=== PATIENT | male | born 1960 | race Caucasian/White ===

== ENCOUNTER 2023-01-30 16:04 | Inpatient (IN) | payer MEDICAID, SELFPAY ==
[2023-01-30] VITALS (8 sets, daily range): BP systolic 110–187; BP diastolic 53–120; PULSE 94–145; RESP 16–18; TEMP 36.5–37.3; O2SAT 94–98; BMI 26.6; BMI 23.8
--- NOTE | 2023-01-30 16:42 | EDS_ITS ---
HPI History of Present Illness Chief Complaint: Substance Abuse [facility] Medical History (Updated 01/30/23 @ 16:50 by Lizzette Flores) Alcohol abuse Esophagitis Stomach ulcer Allergy/AdvReac Type Severity Reaction Status Date / Time No Known Allergies Allergy Verified 01/30/23 16:06 Social History Smoking Status: Current every day smoker tobacco type: cigarettes EXAM Physical Exam Const Vital Signs: 01/30/23 16:06 01/30/23 16:46 01/30/23 18:29 Temperature 97.7 F L Temperature Source Temporal Pulse Rate 145 H 94 96 Respiratory Rate 16 16 16 Blood Pressure 187/120 H 128/96 H 163/108 H Blood Pressure Mean 142 106 126 Blood Pressure Source Blood Pressure Position Blood Pressure Location Pulse Ox 98 96 96 Oxygen Delivery Method Room Air Room Air Room Air 01/30/23 18:31 Temperature Temperature Source Pulse Rate 94 Respiratory Rate 16 Blood Pressure 128/111 H Blood Pressure Mean 116 Blood Pressure Source Monitor Blood Pressure Position Sitting Blood Pressure Location Left Arm Pulse Ox 96 Oxygen Delivery Method Room Air MDM MDM MDM Narrative Medical decision making narrative: HISTORY OF PRESENT ILLNESS: 62-year-old male here for detox of alcohol. He states his last drink was a few hours ago typically drinks half pint tequila and 4-5 Budweiser's a day. He further states his last drink was 2 hours prior to arrival. Notes history of alcohol withdrawal approximate 1 month ago. Denies history of seizures. Notes abdominal pain and nausea. REVIEW OF SYSTEMS: Pertinent positives: Nausea, abdominal pain Pertinent negatives: Focal weakness, chest pain PHYSICAL EXAM: Nursing triage notes reviewed, Vital signs reviewed Constitutional: please see mdm HENT: MMM Eyes: Pupils equal round and reactive to light, Extraocular muscles intact Neck: No stridor, no JVD, full neck ROM Lungs: Clear to auscultation, No wheezing or rales. No increased work of breathing, no conversational dyspnea, no accessory muscle use, no nasal flaring. No respiratory distress noted Heart: Regular rate and rhythm, No murmurs, No rubs and No gallops, 2+ distal pulses (radial, femoral, posterior tibial) in all extremities Abdomen: Soft, there is no tenderness, rigidity, rebound or guarding, no obvious peritoneal signs, no palpable pulsatile abdominal masses, no auscultated abdominal bruit : No CVAT Extremities: No edema Neuro: No focal neurological deficits, cranial nerves II through XII intact, 5/5 strength in all extremities. Intact sensation to light touch in all extremities, 2+ reflexes bilateral patella tendons. Normal gait. No ataxia. Skin: No rash or lesions noted MEDICAL DECISION MAKING: Chief Complaint: Alcohol withdrawal/alcohol detox External records reviewed: No recent ED visits or hospitalizations Factors affecting care: Alcohol abuse Social determinants of health: Alcohol abuse History obtained from others: none Consults: Internal medicine MDM Narrative: Initially tachycardic, hypertensive otherwise afebrile and nontoxic-appearing I considered the following differential diagnosis: Alcohol withdrawal, dehydration, ALL IMAGES (IF OBTAINED) HAVE BEEN PERSONALLY REVIEWED AND INTERPRETED BY MYSELF. CBC with no leukocytosis to suggest significant admission, with anemia, no thrombocytopenia BMP with hyponatremia, no significant anion gap, no MELO LFTs with elevated liver enzymes but no hyperbilirubinemia or signs of hepatobiliary structure Lipase is wnl indicating no pancreatic inflammation. Urine tox screen unremarkable (noted positive benzodiazepines likely from Ativan dose here) Serum alcohol negative consistent with early alcohol withdrawal The synthesis of the patient's history, physical exam labs are consistent with acute alcohol withdrawal. He was treated with phenobarbital and IV Ativan for initial CIWA of 8. He was given thiamine and fluids. Patient required mission for alcohol detox. Case was discussed with hospitalist. The patient and/or family, caregivers express understanding. The patient and/or family, caregivers agrees with the plan. Shared decision making: I will have a discussion with the patient and or visitors regarding risk/benefits of further testing or admission. They will be made aware of of the risk/benefits inherent in this decision they will be given the opportunity to voice understanding. Total critical care time today provided was at least 0 [] minutes. This excludes separately billable procedures. Critical care time (if documented) is secondary to the patient having high probability of clinically significant/life threatening deterioration in the patient's condition which required my urgent intervention. Impression: 1. Acute alcohol withdrawal 2. Anemia 3. Hyponatremia 4. Elevated liver enzymes 5. Alcohol use disorder Dispo: Admit Lab Data Labs: Laboratory Results - last 24 hr 01/30/23 01/30/23 17:02 18:06 WBC 7.9 RBC 4.18 L Hgb 11.3 L Hct 35.9 L MCV 85.9 MCH 27.0 MCHC 31.5 L RDW Std Deviation 58.6 H RDW Coeff of Warner 18.9 H Plt Count 471 H MPV 9.4 Immature Gran % (Auto) 1.300 H Neut % (Auto) 49.8 Lymph % (Auto) 32.5 [place] % (Auto) 13.3 H Eos % (Auto) 1.8 Baso % (Auto) 1.3 H Absolute Neuts (auto) 4.0 Absolute Lymphs (auto) 2.57 Nucleated RBC % 0 Differential Comment SCANNED Sodium 133 L Potassium 3.7 Chloride 104 Carbon Dioxide 22.0 Anion Gap 7 BUN 10 Creatinine 0.51 L Estim Creat Clear Calc 144.01 Est GFR (MDRD) Af Amer 213 Est GFR (MDRD) Non-Af 176 BUN/Creatinine Ratio 19.6 Glucose 72 L Calcium 9.4 Total Bilirubin 0.20 Direct Bilirubin 0.07 AST 79 H ALT 121 H Alkaline Phosphatase 109 Total Protein 7.4 Albumin 3.2 Globulin 4.2 Lipase 22 Urine Opiates Screen NEGATIVE Urine Methadone Screen NEGATIVE Ur Barbiturates Screen NEGATIVE Ur Phencyclidine Scrn NEGATIVE Ur Amphetamines Screen NEGATIVE MDMA (Ecstasy) Screen NEGATIVE U Benzodiazepines Scrn POSITIVE H Urine Cocaine Screen NEGATIVE U Cannabinoids Screen NEGATIVE Ur Drug Screen Comment Ethyl Alcohol 29.0 Discharge Plan Triage Chief Complaint: Substance Abuse ED Provider: Sreekanth Chang Dx/Rx/DC Orders Primary Care Provider: Care Physician,No Primary Referrals: [facility] Doctor,Out of [Non-Staff] -
[2023-01-30] MEDS: Phenobarbital 32.4 MG Tablet 97.2 MG PO ×2 (17:07→22:42)
[2023-01-30] MEDS: 0.9% Normal Saline (1000mL) 1,000 ML 999 ML IV (17:07)
[2023-01-30] MEDS: LORazepam 2 MG/ML Syringe IV (17:10)
[2023-01-30] MEDS: Ondansetron 4 MG/2 ML Vial IV (17:10)
[2023-01-30 17:24] LABS: Absolute Lymphocyte Count 2.57 X10^3/uL (0.83-4.51); Basophil% 1.3 % (0-1); Eosinophil# 0.14 X10^3/uL; Eosinophils% 1.8 % (0-5); Hematocrit 35.9 % (40-54); Hemoglobin 11.3 g/dL (13.0-16.5); Lymphocyte # 2.57 X10^3/ul (0.83-4.51); Lymphocyte % 32.5 % (19-41); Mean Corp Hgb Conc 31.5 g/dL (32-36); Mean Corpuscular Volume 85.9 fL (80-94); Mean Platelet Vol. 9.4 fl (6.2-12.0); Monocyte# 1.05 X10^3/uL; Monocyte% 13.3 % (0-10); NRBC Flagged by Analyzer 0 % (0-5); Neutrophil # 3.95 X10^3/uL (2.7-7.7); Neutrophil % 49.8 % (47-70); POSITIVE MORPHOLOGY YES; Platelet Count 471 K/mm3 (150-450); RBC Distribution Width CV 18.9 % (11.6-14.6); RBC Distribution Width SD 58.6 fl (35.1-43.9); Red Blood Count 4.18 M/mm3 (4.6-6.2); White Blood Count 7.9 K/mm3 (4.4-11.0)
[2023-01-30 17:28] LABS: Differential Indicated SCAN CRITERIA MET
[2023-01-30 18:13] LABS: AST(SGOT) 79 U/L (15-37); Alanine Aminotransfer ALT/SGPT 121 U/L (16-61); Albumin, Serum 3.2 g/dL (3.2-5.0); Alkaline Phosphatase 109 U/L (45-117); Anion Gap 7 (5-15); BUN 10 mg/dL (7-18); BUN/Creat Ratio 19.6 RATIO (10-20); Bilirubin, Direct 0.07 mg/dL (0.00-0.30); Calcium,Total 9.4 mg/dL (8.5-10.1); Chloride 104 mmol/L (98-107); Creatinine, Serum 0.51 mg/dL (0.70-1.30); EST Glomerular Filtration Rate 176 mL/min (>60); Est Glom Filt Rate - Afr Amer 213 mL/min (>60); Estimated Creatinine Clearance 144.01 ml/min; Globulin 4.2 g/dL (2.2-4.2); Glucose 72 mg/dL (74-106); Lipase 22 U/L (13-75); Potassium 3.7 mmol/L (3.5-5.1); Protein, Total 7.4 g/dL (6.4-8.2); Sodium Level 133 mmol/L (136-145)
[2023-01-30 18:25] LABS: Differential Comment SCANNED
[2023-01-30] MEDS: Thiamine Hydrochloride 100 MG in 0.9% Normal Saline (50mL Bag) 50 ML 200 MG IV (18:27)
[2023-01-30 18:29] LABS: Amphetamine Urine VISTA NEGATIVE (<1000 ng/mL); Barbiturate Urine VISTA NEGATIVE (< 200 ng/mL); Benzodiazepine Urine VISTA POSITIVE (< 200 ng/mL); Cocaine Urine VISTA NEGATIVE (< 300 ng/mL); Ecstacy Urine VISTA NEGATIVE (< 500 ng/mL); Methadone Urine VISTA NEGATIVE (< 300 ng/mL); PCP Urine VISTA NEGATIVE (< 25 ng/mL); THC Urine VISTA NEGATIVE (< 50 ng/mL); Vista UDS pH Range 6
[2023-01-30] MEDS: LORazepam 2 MG/ML Syringe 3 MG IV (19:31)
--- NOTE | 2023-01-30 19:38 | HP.PCM.HOS_ITS ---
HPI - General General Date of Admission: 01/30/23 Date of Service: 01/30/23 Chief Complaint: Desire for detoxification HPI Narrative CAYETANO LOYD, is a 62 M with a significant history of alcoholism; esophagitis; peptic ulcer disease; fatty liver; and tobacco abuse who presents emergency department who presents to the emergency department for help with alcohol detoxification. Patient reports drinking a pint of tequila each day. Also he drinks 4-5 tall cans of beer. He has been drinking heavily for the past 25 years. Last time he drank was about 2 hours prior to presentation. While at the emergency department patient was withdrawing so he was given phenobarbital, Ativan and ondansetron. Patient reports withdrawal symptoms of tremors. [facility] Medical History Alcohol abuse Esophagitis Stomach ulcer Allergy/AdvReac Type Severity Reaction Status Date / Time No Known Allergies Allergy Verified 01/30/23 16:06 Family History (Updated 01/30/23 @ 19:[address] Michelet Alejo MD) Other Dementia Diabetes no surgical history Social History Smoking Status: Current every day smoker tobacco type: cigarettes ROS ROS Narrative Pertinent positives and pertinent negatives as noted in HPI. All other systems were reviewed and are negative Vital Signs Vital Signs Vital Signs: 01/30/23 16:06 01/30/23 16:46 01/30/23 18:29 Temperature 97.7 F L Temperature Source Temporal Pulse Rate 145 H 94 96 Respiratory Rate 16 16 16 Blood Pressure 187/120 H 128/96 H 163/108 H Blood Pressure Mean 142 106 126 Blood Pressure Source Blood Pressure Position Blood Pressure Location Pulse Ox 98 96 96 Oxygen Delivery Method Room Air Room Air Room Air 01/30/23 18:31 Temperature Temperature Source Pulse Rate 94 Respiratory Rate 16 Blood Pressure 128/111 H Blood Pressure Mean 116 Blood Pressure Source Monitor Blood Pressure Position Sitting Blood Pressure Location Left Arm Pulse Ox 96 Oxygen Delivery Method Room Air Weight Weight: 77.111 kg Body Mass Index (BMI) 26.6 Physical Exam Narrative Physical exam: General: Well-nourished, well-developed. Head: Normocephalic, atraumatic, no tenderness Eyes: Vision is grossly intact. EOMI ENT, no trauma, moist mucous membranes, no rhinorrhea Neck: Nontender, No thyromegaly. CVS: Regular rate and rhythm. S1-S2 present. No murmur, gallop or rub. Respiratory : clear to auscultation bilaterally, chest wall nontender Abdomen: Soft, nontender, nondistended, normal bowel sounds, no masses : Deferred Back: Nontender, no CVA tenderness. Extremities: Nontender full range of motion, no trauma Skin: Normal color, no trauma, abrasions Neuro: Alert, oriented, cranial nerves II through XII grossly intact. Tremors. Psychiatry: Normal mood. Normal affect. Not depressed. Not anxious. Results Lab / Micro Data 01/30/23 17:02 01/30/23 17:02 Labs: Laboratory Results - last 24 hr 01/30/23 17:02: WBC 7.9, RBC 4.18 L, Hgb 11.3 L, Hct 35.9 L, MCV 85.9, MCH 27.0, MCHC 31.5 L, RDW Std Deviation 58.6 H, RDW Coeff of Warner 18.9 H, Plt Count 471 H, MPV 9.4, Immature Gran % (Auto) 1.300 H, Neut % (Auto) 49.8, Lymph % (Auto) 32.5, [place] % (Auto) 13.3 H, Eos % (Auto) 1.8, Baso % (Auto) 1.3 H, Absolute Neuts (auto) 4.0, Absolute Lymphs (auto) 2.57, Nucleated RBC % 0, Differential Comment SCANNED, Sodium 133 L, Potassium 3.7, Chloride 104, Carbon Dioxide 22.0, Anion Gap 7, BUN 10, Creatinine 0.51 L, Estim Creat Clear Calc 144.01, Est GFR (MDRD) Af Amer 213, Est GFR (MDRD) Non-Af 176, BUN/Creatinine Ratio 19.6, Glucose 72 L, Calcium 9.4, Total Bilirubin 0.20, Direct Bilirubin 0.07, AST 79 H , ALT 121 H, Alkaline Phosphatase 109, Total Protein 7.4, Albumin 3.2, Globulin 4.2, Lipase 22, Ethyl Alcohol 29.0 01/30/23 18:06: Urine Opiates Screen NEGATIVE, Urine Methadone Screen NEGATIVE, Ur Barbiturates Screen NEGATIVE, Ur Phencyclidine Scrn NEGATIVE, Ur Amphetamines Screen NEGATIVE, MDMA (Ecstasy) Screen NEGATIVE, U Benzodiazepines Scrn POSITIVE H, Urine Cocaine Screen NEGATIVE, U Cannabinoids Screen NEGATIVE, Ur Drug Screen Comment Assessment & Plan Assessment/Plan (1) Desire for detoxification: PLAN: Plan Alcohol dependence and desire for detoxification Patient be started on phenobarbital and other adjunctive medications: Gabapentin as needed; dicyclomine as needed; Vistaril as needed; Imodium as needed; trazodone as needed; Zofran as needed; scheduled thiamine; and schedule folic acid. Monitor CIWA score Elevated blood pressure diagnosis of hypertension Likely secondary to alcohol abuse. Management as above. Tobacco abuse Counseled Declined nicotine patch. Hyponatremia Likely secondary to beer potomania. Treatment as in alcohol dependence. DVT prophylaxis Subcutaneous Lovenox ordered. Time spent in the patient's overall evaluation,decision-making process, review of diagnostic data, adjustment of management, discussion with other providers, nursing and ancillary staff involved in patient's care documentation, 45 minute s. Charges/Coding Visit Charges Inpatient E&M: 88550 Init Hosp L2
[2023-01-30] MEDS: 0.9% Saline Lock 10 ML Syringe IV (22:44)
[2023-01-31 02:54] VITALS: BP 129/93; PULSE 91; RESP 18; TEMP 36.8; O2SAT 96
[2023-01-31] MEDS: Phenobarbital 32.4 MG Tablet 97.2 MG PO ×6 (02:57→22:15)
[2023-01-31 06:04] VITALS: BP 128/74; PULSE 93; RESP 18; TEMP 36.9; O2SAT 97
[2023-01-31 06:59] VITALS: O2SAT 94
[2023-01-31 09:26] VITALS: BP 109/70; PULSE 93; RESP 16; TEMP 36.7; O2SAT 96
[2023-01-31] MEDS: 0.9% Saline Lock 10 ML Syringe IV (09:36)
[2023-01-31] MEDS: Thiamine Hydrochloride 100 MG Tablet PO (09:45)
[2023-01-31] MEDS: Influenza Virus Vac Quad 23-24 60 MCG/0.5 ML SYRINGE IM (09:45)
[2023-01-31] MEDS: Folic Acid 1 MG Tablet PO (09:45)
[2023-01-31] MEDS: Ensure Plus High Protein 120 ML LIQUID PO ×4 (09:51→22:15)
--- NOTE | 2023-01-31 10:00 | PN.HOSP_ITS ---
Subjective Subjective No new issues overnight, CIWA score of 7 Objective Data Objective Data Vital Signs: Vital Signs Temp Pulse Resp BP Pulse Ox O2 Del Method O2 Flow Rate 98.1 F 93 16 109/70 96 Room Air 95 01/31/23 09:26 01/31/23 09:26 01/31/23 09:26 01/31/23 09:26 01/31/23 09:26 01/31/23 09:34 01/31/23 09:34 Oxygen Flow Rate (L/min) 95 Oxygen Delivery Method Room Air Weight: 152 lb 5.431 oz Body Mass Index (BMI) 23.8 Intake & Output: Intake and Output for Last 24 Hours 01/30/23 01/31/23 02/01/23 03:59 03:59 03:59 Intake Total 1051 / 1051 Balance 1051 / 1051 Lab / Micro Data 01/30/23 17:02 01/30/23 17:02 Labs: Laboratory Results - last 24 hr 01/30/23 17:02: WBC 7.9, RBC 4.18 L, Hgb 11.3 L, Hct 35.9 L, MCV 85.9, MCH 27.0, MCHC 31.5 L, RDW Std Deviation 58.6 H, RDW Coeff of Warner 18.9 H, Plt Count 471 H, MPV 9.4, Immature Gran % (Auto) 1.300 H, Neut % (Auto) 49.8, Lymph % (Auto) 32.5, [place] % (Auto) 13.3 H, Eos % (Auto) 1.8, Baso % (Auto) 1.3 H, Absolute Neuts (auto) 4.0, Absolute Lymphs (auto) 2.57, Nucleated RBC % 0, Differential Comment SCANNED, Sodium 133 L, Potassium 3.7, Chloride 104, Carbon Dioxide 22.0, Anion Gap 7, BUN 10, Creatinine 0.51 L, Estim Creat Clear Calc 144.01, Est GFR (MDRD) Af Amer 213, Est GFR (MDRD) Non-Af 176, BUN/Creatinine Ratio 19.6, Glucose 72 L, Calcium 9.4, Total Bilirubin 0.20, Direct Bilirubin 0.07, AST 79 H , ALT 121 H, Alkaline Phosphatase 109, Total Protein 7.4, Albumin 3.2, Globulin 4.2, Lipase 22, Ethyl Alcohol 29.0 01/30/23 18:06: Urine Opiates Screen NEGATIVE, Urine Methadone Screen NEGATIVE, Ur Barbiturates Screen NEGATIVE, Ur Phencyclidine Scrn NEGATIVE, Ur Amphetamines Screen NEGATIVE, MDMA (Ecstasy) Screen NEGATIVE, U Benzodiazepines Scrn POSITIVE H, Urine Cocaine Screen NEGATIVE, U Cannabinoids Screen NEGATIVE, Ur Drug Screen Comment Physical Exam Narrative General: Alert, Oriented x3, Cooperative, No apparent distress, mild tremor HEENT: Atraumatic, PERRLA, EOMI, Normocephalic Oral: Moist Mucosa Neck: Supple, No JVD Lungs: Diminished, Normal air movement, No rhonchi, No wheeze, No rales Cardiovascular: Regular rate, Regular Rhythm, Normal S1, Normal S2, No murmurs Abdomen: Soft, Non Tender, Non-Distended, No Hepato-splenomegaly Extremities: No edema, Capillary Refill Less than 3 Seconds Skin: No rashes, No breakdown Musculoskeletal: No Tenderness to Palpation of Joints or Extremities Neurological: Cranial nerves II-XII grossly intact, Motor Exam 5/5 strength throughout, Sensory exam intact to light touch and pain Psych/Mental Status: Flat, anxious Assessment & Plan Assessment/Plan (1) Desire for detoxification: PLAN: Plan 1. Acute alcohol withdrawal/tobacco abuse/hyponatremia/anxiety/depression ? Continue with the alcohol withdrawal protocol ? Follow-up with 180 to develop discharge planning ? Discussed cessation, did not want a nicotine patch ? Sodium normal ? He is taking his BuSpar but is not taking his Zoloft 2. Seizure disorder ? Stable ? Continue with his Keppra DVT: Ambulation Charges/Coding Visit Charges Inpatient E&M: 13318 Subs Hosp L2
--- NOTE | 2023-01-31 11:41 | CASEMGMT ---
Social Work SW did let pt navigator w/[facility] [employer] know that pt is here. YENNY Nassar
--- NOTE | 2023-01-31 12:58 | ADDICTION ---
TW met with patient d complete assessments. He reported that he is torn between [facility] and [facility] in [place], [place]. He has been approved for both. He would like a day to decide. The [facility] plans to arrive Thursday around . If he changes his mind the Treatment Navigator will need called to cancel the brass pickler since they are 3 hours away.
[2023-01-31 15:13] VITALS: BP 129/85; PULSE 94; RESP 18; TEMP 37.1; O2SAT 97
[2023-01-31 20:31] VITALS: BP 142/86; PULSE 110; RESP 16; TEMP 36.9; O2SAT 99
[2023-01-31] MEDS: levETIRAcetam 500 MG Tablet PO (22:15)
[2023-02-01] VITALS (23 sets, daily range): BP systolic 111–164; BP diastolic 63–91; PULSE 72–85; RESP 13–22; TEMP 36.2–36.9; O2SAT 88–99; BMI 24.3
[2023-02-01] MEDS: Phenobarbital 32.4 MG Tablet 97.2 MG PO ×2 (03:07→05:24)
[2023-02-01] MEDS: Ondansetron 8 MG Tablet PO (03:11)
[2023-02-01] MEDS: LORazepam 2 MG/ML Syringe IV ×2 (03:45→04:36)
--- NOTE | 2023-02-01 03:54 | NURSING ---
pt yelling, hitting, trying to bite, crawling out of bed, incontinent, jerome care given, dr aware and ativan given per order. sitting at nursing station for safety. will continue to monitor
--- NOTE | 2023-02-01 04:03 | NURSING ---
nursing harvest supervisor updated about pt behavior will keep updated
[2023-02-01] MEDS: 0.9% Saline Lock 10 ML Syringe IV (04:37)
--- NOTE | 2023-02-01 04:47 | NURSING ---
assisted with urinal , but pt uncooperative. medicated with ativan for ciwa 18. eating snack now. in chair in his room with rn present for safety.
[2023-02-01] MEDS: Gabapentin 300 MG Capsule PO (05:24)
--- NOTE | 2023-02-01 05:43 | NURSING ---
nursing supervisor lump room notified that dr wants to transfer to unit, primary rn notified to call report. transfer to icu 3
--- NOTE | 2023-02-01 06:02 | NURSING ---
Pt received from [facility] while secured in radha-chair. Pt argumentative and refusing to cooperate in order to get in to ICU bed 3. Staff able to get pt to comply after much encouragement. Gait very unsteady, able to stand and pivot w/assist x3. Primofit applied, IV patency verified. Bed exit alarm on.
--- NOTE | 2023-02-01 06:05 | NURSING ---
transfer to icu with nursing supv assist
[2023-02-01] MEDS: dexMEDEtomidine 400 MCG in 0.9% Normal Saline (100mL Bag) 96 ML 8.6 MCG CONT INF (06:15)
--- NOTE | 2023-02-01 09:06 | PCM.PN.HOSP ---
Subjective Subjective Resting on the Precedex drip, had to be transferred to the ICU overnight secondary to significant behavioral issues Objective Data Objective Data Vital Signs: Vital Signs Temp Pulse Resp BP Pulse Ox O2 Del Method O2 Flow Rate 97.1 F L 76 13 111/63 98 Nasal Cannula 2 02/01/23 08:00 02/01/23 08:00 02/01/23 08:00 02/01/23 08:00 02/01/23 08:14 02/01/23 08:14 02/01/23 08:14 Oxygen Flow Rate (L/min) 2 Oxygen Delivery Method Nasal Cannula Weight: 155 lb 1.6 oz Body Mass Index (BMI) 24.3 Intake & Output: Intake and Output for Last 24 Hours 01/31/23 02/01/23 02/02/23 03:59 03:59 03:59 Intake Total 1051 / 1051 740 / 740 15.35 / 15.35 Balance 1051 / 1051 740 / 740 15.35 / 15.35 Medical Nutrition Assessment Dietitian: Malnutrition Criteria Met Start: 01/31/23 17:08 Freq: Status: Active Protocol: Document 01/31/23 17:08 [facility] (Rec: 01/31/23 17:08 [facility] [id number]) Nutrition Malnutrition Evidence of Malnutrition Exists Yes Malnutrition (severe): Social/Behavioral/ Environmental Evidenced By Weight Loss (Moderate),Weight Loss (Severe),Physical Changes (Mild) Clinical Problem Starvation Related Malnutrition Etiology related to decreased ability to consume sufficient energy to meet estimated nutrient needs Signs/Symptoms as evidenced by significant weight loss of 10.6% in 2 months based upon UBW ~170lb and current weight of 152lb, decreased oral intakes meeting < 50% of estimated nutrient needs x 2 months as well as mild to moderate muscle wasting per NFPA. Status Active Problem Recommendation Dietitian Recommendations/Changes Continue Regular diet as ordered for liberalization. Continue with Ensure Plus High Protein 120mL 4x/day with medpass as well as will order Ensure with breakfast to help further increase oral intakes. Lab / Micro Data 01/30/23 17:02 01/30/23 17:02 Physical Exam Narrative General: Drowsy on Precedex, Cooperative, No apparent distress, mild tremor HEENT: Atraumatic, PERRLA, EOMI, Normocephalic Oral: Moist Mucosa Neck: Supple, No JVD Lungs: Diminished, Normal air movement, No rhonchi, No wheeze, No rales Cardiovascular: Regular rate, Regular Rhythm, Normal S1, Normal S2, No murmurs Abdomen: Soft, Non Tender, Non-Distended, No Hepato-splenomegaly Extremities: No edema, Capillary Refill Less than 3 Seconds Skin: No rashes, No breakdown Musculoskeletal: No Tenderness to Palpation of Joints or Extremities Neurological: Cranial nerves II-XII grossly intact, Motor Exam 5/5 strength throughout, Sensory exam intact to light touch and pain Psych/Mental Status: Flat Assessment & Plan Assessment/Plan (1) Desire for detoxification: PLAN: Plan 1. Acute alcohol withdrawal/tobacco abuse/hyponatremia/anxiety/depression ? Continue with the alcohol withdrawal protocol ? Follow-up with 180 to develop discharge planning ? Discussed cessation, did not want a nicotine patch ? Had to be transferred to the ICU overnight, continue with the Precedex drip for another 24 hours ? He is taking his BuSpar but is not taking his Zoloft 2. Seizure disorder ? Stable ? Continue with his Keppra DVT: Ambulation Charges/Coding Visit Charges Inpatient E&M: 83474 Subs Hosp L2
[2023-02-01] MEDS: Enoxaparin 40 MG/0.4 ML Syringe SC (10:02)
[2023-02-01] MEDS: levETIRAcetam IV 500 MG in 0.9% Normal Saline (100mL Bag) 100 ML 400 MG IV ×2 (10:34→19:58)
[2023-02-01] MEDS: dexMEDEtomidine 400 MCG in 0.9% Normal Saline (100mL Bag) 96 ML 8.8 MCG CONT INF (16:39)
[2023-02-02] VITALS (25 sets, daily range): BP systolic 136–183; BP diastolic 77–102; PULSE 67–92; RESP 14–20; TEMP 36.1–37.1; O2SAT 92–98; BMI 23.8
[2023-02-02] MEDS: dexMEDEtomidine 400 MCG in 0.9% Normal Saline (100mL Bag) 96 ML 14.1 MCG CONT INF (01:50)
--- NOTE | 2023-02-02 02:58 | NURSING ---
Pt has not peed in about 9 hours. Pt encouraged to pee via primofit several times. Pt states he does not feel like he needs to go. Bladder scan shows >800ml urine in bladder. Dr. Alejo notified. Discussed pt's history and plan of care with physician, who made the decision to insert indwelling pascual catheter due to urinary retention. 16fr urinary catheter inserted in sterile fashion, immediate return of 1000ml of urine. Pt tolerated well.
[2023-02-02 04:45] LABS: Absolute Lymphocyte Count 2.14 X10^3/uL (0.83-4.51); Absolute Neutrophil Count 4.1 X10^3/uL (2.0-7.7); Basophil# 0.07 X10^3/uL; Eosinophil# 0.14 X10^3/uL; Hematocrit 37.6 % (40-54); Hemoglobin 11.7 g/dL (13.0-16.5); Lymphocyte # 2.14 X10^3/ul (0.83-4.51); Lymphocyte % 30.3 % (19-41); Mean Corp Hgb Conc 31.1 g/dL (32-36); Mean Corpuscular Hgb 27.3 pg (27.0-32.0); Mean Corpuscular Volume 87.9 fL (80-94); Mean Platelet Vol. 9.3 fl (6.2-12.0); Monocyte# 0.58 X10^3/uL; Monocyte% 8.2 % (0-10); NRBC Flagged by Analyzer 0 % (0-5); Neutrophil # 4.11 X10^3/uL (2.7-7.7); Neutrophil % 58.1 % (47-70); Platelet Count 402 K/mm3 (150-450); RBC Distribution Width CV 18.7 % (11.6-14.6); RBC Distribution Width SD 58.6 fl (35.1-43.9); Red Blood Count 4.28 M/mm3 (4.6-6.2); White Blood Count 7.1 K/mm3 (4.4-11.0)
[2023-02-02 05:01] LABS: Anion Gap 5 (5-15); BUN 4 mg/dL (7-18); BUN/Creat Ratio 7.4 RATIO (10-20); Calcium,Total 9.4 mg/dL (8.5-10.1); Chloride 106 mmol/L (98-107); Creatinine, Serum 0.54 mg/dL (0.70-1.30); EST Glomerular Filtration Rate 164 mL/min (>60); Est Glom Filt Rate - Afr Amer 198 mL/min (>60); Estimated Creatinine Clearance 136.01 ml/min; Glucose 111 mg/dL (74-106); Sodium Level 139 mmol/L (136-145)
[2023-02-02] MEDS: Enoxaparin 40 MG/0.4 ML Syringe SC (08:43)
[2023-02-02] MEDS: levETIRAcetam IV 500 MG in 0.9% Normal Saline (100mL Bag) 100 ML 400 MG IV ×2 (08:43→20:26)
--- NOTE | 2023-02-02 08:54 | PCM.PN.HOSP ---
Subjective Subjective Overnight had to have his Precedex drip decreased because they tried to increase it due to behaviors but his respiratory rate dropped. Currently resting, CIWA score of 6 Objective Data Objective Data Vital Signs: Vital Signs Temp Pulse Resp BP Pulse Ox O2 Del Method O2 Flow Rate 98.8 F 69 16 168/87 H 93 Room Air 1 02/02/23 08:00 02/02/23 08:00 02/02/23 08:00 02/02/23 08:00 02/02/23 08:00 02/02/23 08:00 02/02/23 07:00 Oxygen Flow Rate (L/min) 1 Oxygen Delivery Method Room Air Weight: 152 lb 1.903 oz Body Mass Index (BMI) 23.8 Intake & Output: Intake and Output for Last 24 Hours 02/01/23 02/02/23 02/03/23 03:59 03:59 03:59 Intake Total 740 / 740 420.89 / 423.54 45.05 / 45.05 Output Total 2150 / 2150 200 / 200 Balance 740 / 740 -1729.11 / -1726.46 -154.95 / -154.95 Medical Nutrition Assessment Dietitian: Malnutrition Criteria Met Start: 01/31/23 17:08 Freq: Status: Active Protocol: Document 01/31/23 17:08 [facility] (Rec: 01/31/23 17:08 [facility] [id number]) Nutrition Malnutrition Evidence of Malnutrition Exists Yes Malnutrition (severe): Social/Behavioral/ Environmental Evidenced By Weight Loss (Moderate),Weight Loss (Severe),Physical Changes (Mild) Clinical Problem Starvation Related Malnutrition Etiology related to decreased ability to consume sufficient energy to meet estimated nutrient needs Signs/Symptoms as evidenced by significant weight loss of 10.6% in 2 months based upon UBW ~170lb and current weight of 152lb, decreased oral intakes meeting < 50% of estimated nutrient needs x 2 months as well as mild to moderate muscle wasting per NFPA. Status Active Problem Recommendation Dietitian Recommendations/Changes Continue Regular diet as ordered for liberalization. Continue with Ensure Plus High Protein 120mL 4x/day with medpass as well as will order Ensure with breakfast to help further increase oral intakes. Lab / Micro Data 02/02/23 04:30 02/02/23 04:30 Labs: Laboratory Results - last 24 hr 02/02/23 04:30: WBC 7.1, RBC 4.28 L, Hgb 11.7 L, Hct 37.6 L, MCV 87.9, MCH 27.3, MCHC 31.1 L, RDW Std Deviation 58.6 H, RDW Coeff of [place] 18.7 H, Plt Count 402, MPV 9.3, Immature Gran % (Auto) 0.400, Neut % (Auto) 58.1, Lymph % (Auto) 30.3, [place] % (Auto) 8.2, Eos % (Auto) 2.0, Baso % (Auto) 1.0, Absolute Neuts (auto) 4.1, Absolute Lymphs (auto) 2.14, Nucleated RBC % 0, Sodium 139, Potassium 4.0, Chloride 106, Carbon Dioxide 28.0, Anion Gap 5, BUN 4 L, Creatinine 0.54 L, Estim Creat Clear Calc 136.01, Est GFR (MDRD) Af Amer 198, Est GFR (MDRD) Non-Af 164, BUN/Creatinine Ratio 7.4 L, Glucose 111 H, Calcium 9.4 Physical Exam Narrative General: Drowsy on Precedex, Cooperative, No apparent distress HEENT: Atraumatic, PERRLA, EOMI, Normocephalic Oral: Moist Mucosa Neck: Supple, No JVD Lungs: Diminished, Normal air movement, No rhonchi, No wheeze, No rales Cardiovascular: Regular rate, Regular Rhythm, Normal S1, Normal S2, No murmurs Abdomen: Soft, Non Tender, Non-Distended, No Hepato-splenomegaly Extremities: No edema, Capillary Refill Less than 3 Seconds Skin: No rashes, No breakdown Musculoskeletal: No Tenderness to Palpation of Joints or Extremities Neurological: Cranial nerves II-XII grossly intact, Motor Exam 5/5 strength throughout, Sensory exam intact to light touch and pain Psych/Mental Status: Flat Assessment & Plan Assessment/Plan (1) Desire for detoxification: PLAN: Plan 1. Acute alcohol withdrawal/tobacco abuse/hyponatremia/anxiety/depression ? Continue with the alcohol withdrawal protocol ? Follow-up with 180 to develop discharge planning ? Discussed cessation, did not want a nicotine patch ? Continue with Precedex drip wean as able ? He is taking his BuSpar but is not taking his Zoloft 2. Seizure disorder ? Stable ? Continue with his Keppra DVT: Ambulation Charges/Coding Visit Charges Inpatient E&M: 77884 Subs Hosp L2
[2023-02-02] MEDS: dexMEDEtomidine 400 MCG in 0.9% Normal Saline (100mL Bag) 96 ML 15.8 MCG CONT INF (10:35)
--- NOTE | 2023-02-02 11:12 | ADDICTION ---
Was unable to meet with patient today due to being sedated on Precedex due to withdrawal symptoms. Will see him tomorrow.
[2023-02-02] MEDS: dexMEDEtomidine 400 MCG in 0.9% Normal Saline (100mL Bag) 96 ML 22.9 MCG CONT INF ×2 (15:02→19:44)
[2023-02-03] VITALS (24 sets, daily range): BP systolic 110–171; BP diastolic 63–99; PULSE 71–89; RESP 15–93; TEMP 36.3–36.7; O2SAT 22–98; BMI 23.4
[2023-02-03] MEDS: dexMEDEtomidine 400 MCG in 0.9% Normal Saline (100mL Bag) 96 ML 24.6 MCG CONT INF (00:16)
[2023-02-03 03:36] LABS: Absolute Lymphocyte Count 2.18 X10^3/uL (0.83-4.51); Absolute Neutrophil Count 6.4 X10^3/uL (2.0-7.7); Basophil# 0.08 X10^3/uL; Basophil% 0.9 % (0-1); Eosinophil# 0.15 X10^3/uL; Eosinophils% 1.6 % (0-5); Hematocrit 39.6 % (40-54); Hemoglobin 12.8 g/dL (13.0-16.5); Lymphocyte # 2.18 X10^3/ul (0.83-4.51); Lymphocyte % 23.2 % (19-41); Mean Corp Hgb Conc 32.3 g/dL (32-36); Mean Corpuscular Hgb 27.9 pg (27.0-32.0); Mean Corpuscular Volume 86.5 fL (80-94); Mean Platelet Vol. 9.4 fl (6.2-12.0); Monocyte# 0.49 X10^3/uL; Monocyte% 5.2 % (0-10); NRBC Flagged by Analyzer 0 % (0-5); Neutrophil # 6.44 X10^3/uL (2.7-7.7); Neutrophil % 68.7 % (47-70); Platelet Count 401 K/mm3 (150-450); RBC Distribution Width SD 58.2 fl (35.1-43.9); Red Blood Count 4.58 M/mm3 (4.6-6.2); White Blood Count 9.4 K/mm3 (4.4-11.0)
[2023-02-03 03:56] LABS: Anion Gap 9 (5-15); BUN 5 mg/dL (7-18); Calcium,Total 9.4 mg/dL (8.5-10.1); Chloride 105 mmol/L (98-107); Creatinine, Serum 0.56 mg/dL (0.70-1.30); EST Glomerular Filtration Rate 159 mL/min (>60); Est Glom Filt Rate - Afr Amer 192 mL/min (>60); Estimated Creatinine Clearance 131.15 ml/min; Glucose 95 mg/dL (74-106); Potassium 3.9 mmol/L (3.5-5.1); Sodium Level 137 mmol/L (136-145)
[2023-02-03] MEDS: Dexmedetomidine 1,000 mcg in 0.9% NS 240 mL 25.9 MCG CONT INF ×2 (04:45→20:00)
--- NOTE | 2023-02-03 08:10 | PCM.PN.HOSP ---
Subjective Subjective Patient is a 62-year-old gentleman with history of chronic alcohol dependence admitted with acute alcohol withdrawal with desire for detoxification. Hospital stay complicated by significant delirium resulting in patient being transferred to the intensive care unit with initiation of Precedex Objective Data Objective Data Vital Signs: Vital Signs Temp Pulse Resp BP Pulse Ox O2 Del Method O2 Flow Rate 97.6 F L 77 18 163/85 H 92 Room Air 1 02/03/23 06:00 02/03/23 07:00 02/03/23 07:00 02/03/23 07:00 02/03/23 07:00 02/03/23 07:00 02/02/23 07:00 Oxygen Flow Rate (L/min) 1 Oxygen Delivery Method Room Air Weight: 67.7 kg Body Mass Index (BMI) 23.4 Intake & Output: Intake and Output for Last 24 Hours 02/01/23 02/02/23 02/03/23 23:59 23:59 23:59 Intake Total 862.28 / 869.33 620.02 / 626.17 158.11 / 158.11 Output Total 1150 / 1150 2025 / 2975 1200 / 1200 Balance -287.72 / -280.67 -1404.98 / -2348.83 -1041.89 / -1041.89 Medical Nutrition Assessment Dietitian: Malnutrition Criteria Met Start: 01/31/23 17:08 Freq: Status: Active Protocol: Document 01/31/23 17:08 [facility] (Rec: 01/31/23 17:08 [facility] [id number]) Nutrition Malnutrition Evidence of Malnutrition Exists Yes Malnutrition (severe): Social/Behavioral/ Environmental Evidenced By Weight Loss (Moderate),Weight Loss (Severe),Physical Changes (Mild) Clinical Problem Starvation Related Malnutrition Etiology related to decreased ability to consume sufficient energy to meet estimated nutrient needs Signs/Symptoms as evidenced by significant weight loss of 10.6% in 2 months based upon UBW ~170lb and current weight of 152lb, decreased oral intakes meeting < 50% of estimated nutrient needs x 2 months as well as mild to moderate muscle wasting per NFPA. Status Active Problem Recommendation Dietitian Recommendations/Changes Continue Regular diet as ordered for liberalization. Continue with Ensure Plus High Protein 120mL 4x/day with medpass as well as will order Ensure with breakfast to help further increase oral intakes. Lab / Micro Data 02/03/23 03:25 02/03/23 03:25 Labs: Laboratory Results - last 24 hr 02/03/23 03:25: WBC 9.4, RBC 4.58 L, Hgb 12.8 L, Hct 39.6 L, MCV 86.5, MCH 27.9, MCHC 32.3, RDW Std Deviation 58.2 H, RDW Coeff of Warner 19.0 H, Plt Count 401, MPV 9.4, Immature Gran % (Auto) 0.400, Neut % (Auto) 68.7, Lymph % (Auto) 23.2, Roberts % (Auto) 5.2, Eos % (Auto) 1.6, Baso % (Auto) 0.9, Absolute Neuts (auto) 6.4, Absolute Lymphs (auto) 2.18, Nucleated RBC % 0, Sodium 137, Potassium 3.9, Chloride 105, Carbon Dioxide 23.0, Anion Gap 9, BUN 5 L, Creatinine 0.56 L, Estim Creat Clear Calc 131.15, Est GFR (MDRD) Af Amer 192, Est GFR (MDRD) Non-Af 159, BUN/Creatinine Ratio 9.0 L, Glucose 95, Calcium 9.4 Physical Exam Narrative GENERAL: Delirious HEENT: Atraumatic; normocephalic EYES; Anicteric, Normal Conjunctiva NECK; supple, normal thyroid, RESPIRATORY: Diminished to auscultation CARDIOVASCULAR: Regular S1 S2, GI: soft, normoactive bowel sounds, : No Renal angle tenderness; EXTREMITIES: No edema, no clubbing, MUSCULOSKELETAL: no muscle wasting NEURO: Awake; no lateralizing signs. SKIN: No Rash PSYCH; Flat affect Assessment & Plan Assessment/Plan (1) Desire for detoxification: PLAN: Plan Patient is a 62-year-old gentleman with history of chronic alcohol dependence admitted with acute alcohol withdrawal with desire for detoxification. Hospital stay complicated by significant delirium resulting in patient being transferred to the intensive care unit with initiation of Precedex Acute alcohol withdrawal with significant delirium ? Admitted to the intensive care unit started on Precedex drip after patient worsening was on regular floor. Plan is to wean off Precedex and initiate phenobarb taper 2. Natremia ? Secondary to chronic alcohol use resolved 3. Seizure disorder ? Patient is on Keppra 4. Depression with anxiety ? Patient is on buspirone sertraline at home with plans to resume on discharge 5. GERD ? On PPI 6. Tobacco dependence - Counseled on cessation, offered nicotine patch for tobacco cravings 7. DVT prophylaxis ? Initiated Lovenox since patient is hardly ambulatory Time spent in the patient's overall evaluation,decision-making process, review of diagnostic data, adjustment of management, discussion with other providers, nursing nursing and ancillary staff involved in patient's care documentation, 52 Minutes Charges/Coding Visit Charges Inpatient E&M: 53529 Subs Hosp L3
[2023-02-03] MEDS: Enoxaparin 40 MG/0.4 ML Syringe SC (09:41)
[2023-02-03] MEDS: Thiamine Hydrochloride 100 MG Tablet PO (09:42)
[2023-02-03] MEDS: Gabapentin 300 MG Capsule PO (09:42)
[2023-02-03] MEDS: Phenobarbital 32.4 MG Tablet 64.8 MG PO ×2 (09:42→23:27)
[2023-02-03] MEDS: Folic Acid 1 MG Tablet PO ×2 (09:42)
[2023-02-03] MEDS: levETIRAcetam IV 500 MG in 0.9% Normal Saline (100mL Bag) 100 ML 400 MG IV ×2 (10:38→21:11)
--- NOTE | 2023-02-03 15:24 | CHAPLAIN ---
Type of Pastoral Visit ___ Initial Visit ___ Follow-up Visit ___ On-call Visit ___ General Patient Visit ___ Spiritual Assessment ___ Family Conference ___ Bereavement ___ Rapid Response ___ Code Blue ___ Other (describe below) Pastoral Care Referral From ___ Patient ___ Family ___ Nurse ___ Physician ___ Division Officer [employer]apons Department ___ Commercial Counsel ___ Other (describe below) Sacrament/Intervention ___ Active listening ___ Anointing ___ Jehovah'S Witness ___ Bereavement ___ Communion ___ Heather exploration ___ ___ Life review ___ Prayer ___ Reconciliation ___ Sacrament of Sick ___ Supportive presence ___ Wedding ___ Other (describe below) Pastoral Comments Rn reports that patient is not able to focus and communicate for a visit again today
--- NOTE | 2023-02-03 19:59 | NURSING ---
consuelo carson running at 1.5 on assessment after receiving report at 1900. Charted in MAR.
[2023-02-03] MEDS: Ondansetron 4 MG/2 ML Vial IV (23:19)
[2023-02-04] VITALS (24 sets, daily range): BP systolic 84–175; BP diastolic 51–93; PULSE 72–115; RESP 14–26; TEMP 36.2–37.3; O2SAT 92–98; BMI 23.3
[2023-02-04] MEDS: Dexmedetomidine 1,000 mcg in 0.9% NS 240 mL 25.9 MCG CONT INF (02:36)
[2023-02-04 03:36] LABS: Hematocrit 41.2 % (40-54); Hemoglobin 13.2 g/dL (13.0-16.5); Mean Corpuscular Hgb 27.3 pg (27.0-32.0); Mean Corpuscular Volume 85.3 fL (80-94); Mean Platelet Vol. 9.1 fl (6.2-12.0); Platelet Count 373 K/mm3 (150-450); RBC Distribution Width CV 18.8 % (11.6-14.6); RBC Distribution Width SD 58.6 fl (35.1-43.9); Red Blood Count 4.83 M/mm3 (4.6-6.2); White Blood Count 9.3 K/mm3 (4.4-11.0)
[2023-02-04 03:52] LABS: AST(SGOT) 30 U/L (15-37); Alanine Aminotransfer ALT/SGPT 58 U/L (16-61); Albumin, Serum 2.9 g/dL (3.2-5.0); Alkaline Phosphatase 146 U/L (45-117); Anion Gap 6 (5-15); BUN 10 mg/dL (7-18); BUN/Creat Ratio 16.3 RATIO (10-20); Bilirubin, Direct 0.08 mg/dL (0.00-0.30); Calcium,Total 9.4 mg/dL (8.5-10.1); Chloride 105 mmol/L (98-107); Creatinine, Serum 0.61 mg/dL (0.70-1.30); EST Glomerular Filtration Rate 142 mL/min (>60); Est Glom Filt Rate - Afr Amer 172 mL/min (>60); Globulin 4.4 g/dL (2.2-4.2); Glucose 86 mg/dL (74-106); Phosphorus 3.6 mg/dL (2.5-4.9); Potassium 3.9 mmol/L (3.5-5.1); Protein, Total 7.3 g/dL (6.4-8.2); Sodium Level 135 mmol/L (136-145)
--- NOTE | 2023-02-04 06:39 | NURSING ---
pt removed IV in L forearm with precedex running at 0.8. Precedex paused. Attempting new IV placement.
--- NOTE | 2023-02-04 07:42 | PCM.PN.HOSP ---
Reason for Visit Reason for Visit: Patient has been weaned off Precedex drip. Per nursing staff patient had a choking episode during the early hours of the morning. Currently n.p.o. pending speech and swallow eval Objective Data Objective Data Vital Signs: Vital Signs Temp Pulse Resp BP Pulse Ox O2 Del Method O2 Flow Rate 97.6 F L 82 17 84/51 L 95 Room Air 1 02/04/23 06:00 02/04/23 07:00 02/04/23 07:00 02/04/23 07:00 02/04/23 07:00 02/04/23 07:00 02/02/23 07:00 Oxygen Flow Rate (L/min) 1 Oxygen Delivery Method Room Air Weight: 67.6 kg Body Mass Index (BMI) 23.3 Intake & Output: Intake and Output for Last 24 Hours 02/02/23 02/03/23 02/04/23 23:59 23:59 23:59 Intake Total 620.02 / 626.17 694.01 / 719.91 187.03 / 187.03 Output Total 2025 / 2975 1375 / 1375 500 / 500 Balance -1404.98 / -2348.83 -680.99 / -655.09 -312.97 / -312.97 Medical Nutrition Assessment Dietitian: Malnutrition Criteria Met Start: 01/31/23 17:08 Freq: Status: Active Protocol: Document 01/31/23 17:08 [facility] (Rec: 01/31/23 17:08 [facility] [id number]) Nutrition Malnutrition Evidence of Malnutrition Exists Yes Malnutrition (severe): Social/Behavioral/ Environmental Evidenced By Weight Loss (Moderate),Weight Loss (Severe),Physical Changes (Mild) Clinical Problem Starvation Related Malnutrition Etiology related to decreased ability to consume sufficient energy to meet estimated nutrient needs Signs/Symptoms as evidenced by significant weight loss of 10.6% in 2 months based upon UBW ~170lb and current weight of 152lb, decreased oral intakes meeting < 50% of estimated nutrient needs x 2 months as well as mild to moderate muscle wasting per NFPA. Status Active Problem Recommendation Dietitian Recommendations/Changes Continue Regular diet as ordered for liberalization. Continue with Ensure Plus High Protein 120mL 4x/day with medpass as well as will order Ensure with breakfast to help further increase oral intakes. Lab / Micro Data 02/04/23 03:25 02/04/23 03:25 Labs: Laboratory Results - last 24 hr 02/04/23 03:25: WBC 9.3, RBC 4.83, Hgb 13.2, Hct 41.2, MCV 85.3, MCH 27.3, MCHC 32.0, RDW Std Deviation 58.6 H, RDW Coeff of Warner 18.8 H, Plt Count 373, MPV 9.1, Sodium 135 L, Potassium 3.9, Chloride 105, Carbon Dioxide 24.0, Anion Gap 6, BUN 10, Creatinine 0.61 L, Estim Creat Clear Calc 120.40, Est GFR (MDRD) Af Amer 172, Est GFR (MDRD) Non-Af 142, BUN/Creatinine Ratio 16.3, Glucose 86, Calcium 9.4, Phosphorus 3.6, Magnesium 2.0, Total Bilirubin 0.40, Direct Bilirubin 0.08, AST 30, ALT 58, Alkaline Phosphatase 146 H, Total Protein 7.3, Albumin 2.9 L, Globulin 4.4 H Physical Exam Narrative GENERAL: Delirious HEENT: Atraumatic; normocephalic EYES; Anicteric, Normal Conjunctiva NECK; supple, normal thyroid, RESPIRATORY: Diminished to auscultation CARDIOVASCULAR: Regular S1 S2, GI: soft, normoactive bowel sounds, : No Renal angle tenderness; EXTREMITIES: No edema, no clubbing, MUSCULOSKELETAL: no muscle wasting NEURO: Awake; no lateralizing signs. SKIN: No Rash PSYCH; Flat affect Assessment & Plan Assessment/Plan (1) Desire for detoxification: PLAN: Plan Patient is a 62-year-old gentleman with history of chronic alcohol dependence admitted with acute alcohol withdrawal with desire for detoxification. Hospital stay complicated by significant delirium resulting in patient being transferred to the intensive care unit with initiation of Precedex Acute alcohol withdrawal with significant delirium ? Admitted to the intensive care unit started on Precedex drip after patient worsening was on regular floor. Plan is to wean off Precedex and initiate phenobarb taper ? 02/04/2023;Patient has been weaned off Precedex drip. Per nursing staff patient had a choking episode during the early hours of the morning. Currently n.p.o. pending speech and swallow eval 2. Hyponatremia ? Secondary to chronic alcohol use resolved 3. Seizure disorder ? Patient is on Keppra 4. Depression with anxiety ? Patient is on buspirone sertraline at home with plans to resume on discharge 5. GERD ? On PPI 6. Tobacco dependence - Counseled on cessation, offered nicotine patch for tobacco cravings 7. DVT prophylaxis ? Initiated Lovenox since patient is hardly ambulatory Time spent in the patient's overall evaluation,decision-making process, review of diagnostic data, adjustment of management, discussion with other providers, nursing nursing and ancillary staff involved in patient's care documentation, 35 minutes Charges/Coding Visit Charges Inpatient E&M: 40862 Subs Hosp L2
[2023-02-04] MEDS: Phenobarbital 32.4 MG Tablet 64.8 MG PO ×4 (09:02→20:15)
[2023-02-04] MEDS: Folic Acid 1 MG Tablet PO (09:09)
[2023-02-04] MEDS: Thiamine Hydrochloride 100 MG Tablet PO (09:09)
[2023-02-04] MEDS: Enoxaparin 40 MG/0.4 ML Syringe SC (09:09)
[2023-02-04] MEDS: levETIRAcetam IV 500 MG in 0.9% Normal Saline (100mL Bag) 100 ML 400 MG IV ×2 (09:15→20:15)
[2023-02-04] MEDS: Acetaminophen 325 MG Tablet 650 MG PO (10:06)
[2023-02-04] MEDS: Dicyclomine 10 MG Capsule 20 MG PO ×2 (10:06→20:15)
[2023-02-04] MEDS: Ensure Plus High Protein 120 ML LIQUID PO ×3 (12:13→20:15)
[2023-02-04] MEDS: NYSTATIN 500,000 UNIT/5 ML UDC 500000 UNIT PO ×3 (13:42→20:14)
[2023-02-04] MEDS: hydrOXYzine PAM 25 MG Capsule 50 MG PO ×2 (14:32→20:15)
[2023-02-04] MEDS: Gabapentin 300 MG Capsule PO (20:15)
[2023-02-05] VITALS (13 sets, daily range): BP systolic 109–147; BP diastolic 58–89; PULSE 89–107; RESP 15–28; TEMP 36–37.2; O2SAT 93–96; BMI 23.3
[2023-02-05] MEDS: hydrOXYzine PAM 25 MG Capsule 50 MG PO ×3 (05:02→20:23)
[2023-02-05] MEDS: Phenobarbital 32.4 MG Tablet 64.8 MG PO ×5 (05:02→20:23)
[2023-02-05 05:25] LABS: Hematocrit 38.6 % (40-54); Mean Corp Hgb Conc 31.1 g/dL (32-36); Mean Corpuscular Hgb 26.8 pg (27.0-32.0); Mean Corpuscular Volume 86.4 fL (80-94); Mean Platelet Vol. 9.5 fl (6.2-12.0); Platelet Count 346 K/mm3 (150-450); RBC Distribution Width CV 19.6 % (11.6-14.6); Red Blood Count 4.47 M/mm3 (4.6-6.2); White Blood Count 9.3 K/mm3 (4.4-11.0)
[2023-02-05 05:45] LABS: Anion Gap 5 (5-15); BUN 15 mg/dL (7-18); BUN/Creat Ratio 22.7 RATIO (10-20); Calcium,Total 9.3 mg/dL (8.5-10.1); Chloride 104 mmol/L (98-107); Creatinine, Serum 0.66 mg/dL (0.70-1.30); EST Glomerular Filtration Rate 130 mL/min (>60); Est Glom Filt Rate - Afr Amer 158 mL/min (>60); Estimated Creatinine Clearance 111.28 ml/min; Glucose 95 mg/dL (74-106); Potassium 3.7 mmol/L (3.5-5.1); Sodium Level 137 mmol/L (136-145)
--- NOTE | 2023-02-05 08:13 | PN.HOSP_ITS ---
Reason for Visit Reason for Visit: Follow-up alcohol withdrawal Subjective Subjective Patient seen much more interactive compared to previous day. Plan is for pat ient to be assessed by PT/OT. An order has been given for patient to be transferred from the intensive care unit to [facility] floor Objective Data Objective Data Vital Signs: Vital Signs Temp Pulse Resp BP Pulse Ox O2 Del Method O2 Flow Rate 98.3 F 96 21 H 126/64 H 95 Room Air 1 02/05/23 07:00 02/05/23 07:00 02/05/23 07:00 02/05/23 07:00 02/05/23 07:00 02/05/23 07:00 02/02/23 07:00 Oxygen Flow Rate (L/min) 1 Oxygen Delivery Method Room Air Weight: 67.3 kg Body Mass Index (BMI) 23.3 Intake & Output: Intake and Output for Last 24 Hours 02/03/23 02/04/23 02/05/23 23:59 23:59 23:59 Intake Total 694.01 / 719.91 617.03 / 617.03 300 / 300 Output Total 1375 / 1375 775 / 900 525 / 525 Balance -680.99 / -655.09 -157.97 / -282.97 -225 / -225 Medical Nutrition Assessment Dietitian: Malnutrition Criteria Met Start: 01/31/23 17:08 Freq: Status: Active Protocol: Document 01/31/23 17:08 [facility] (Rec: 01/31/23 17:08 [facility] [id number]) Nutrition Malnutrition Evidence of Malnutrition Exists Yes Malnutrition (severe): Social/Behavioral/ Environmental Evidenced By Weight Loss (Moderate),Weight Loss (Severe),Physical Changes (Mild) Clinical Problem Starvation Related Malnutrition Etiology related to decreased ability to consume sufficient energy to meet estimated nutrient needs Signs/Symptoms as evidenced by significant weight loss of 10.6% in 2 months based upon UBW ~170lb and current weight of 152lb, decreased oral intakes meeting < 50% of estimated nutrient needs x 2 months as well as mild to moderate muscle wasting per NFPA. Status Active Problem Recommendation Dietitian Recommendations/Changes Continue Regular diet as ordered for liberalization. Continue with Ensure Plus High Protein 120mL 4x/day with medpass as well as will order Ensure with breakfast to help further increase oral intakes. Lab / Micro Data 02/05/23 05:05 11/02/23 05:05 Labs: Laboratory Results - last 24 hr 02/05/23 05:05: WBC 9.3, RBC 4.47 L, Hgb 12.0 L, Hct 38.6 L, MCV 86.4, MCH 26.8 L, MCHC 31.1 L, RDW Std Deviation 60.0 H, RDW Coeff of Warner 19.6 H, Plt Count 346, MPV 9.5, Sodium 137, Potassium 3.7, Chloride 104, Carbon Dioxide 28.0, Anion Gap 5, BUN 15, Creatinine 0.66 L, Estim Creat Clear Calc 111.28, Est GFR (MDRD) Af Amer 158, Est GFR (MDRD) Non-Af 130, BUN/Creatinine Ratio 22.7 H, Glucose 95, Calcium 9.3 Physical Exam Narrative GENERAL: Delirious HEENT: Atraumatic; normocephalic EYES; Anicteric, Normal Conjunctiva NECK; supple, normal thyroid, RESPIRATORY: Diminished to auscultation CARDIOVASCULAR: Regular S1 S2, GI: soft, normoactive bowel sounds, : No Renal angle tenderness; EXTREMITIES: No edema, no clubbing, MUSCULOSKELETAL: no muscle wasting NEURO: Awake; no lateralizing signs. SKIN: No Rash PSYCH; Flat affect Assessment & Plan Assessment/Plan (1) Desire for detoxification: PLAN: Plan Patient is a 62-year-old gentleman with history of chronic alcohol dependence admitted with acute alcohol withdrawal with desire for detoxification. Hospital stay complicated by significant delirium resulting in patient being transferred to the intensive care unit with initiation of Precedex Acute alcohol withdrawal with significant delirium ? Admitted to the intensive care unit started on Precedex drip after patient worsening was on regular floor. Plan is to wean off Precedex and initiate phenobarb taper ? 02/04/2023;Patient has been weaned off Precedex drip. Per nursing staff patient had a choking episode during the early hours of the morning. Currently n.p.o. pending speech and swallow eval ? 02/05/2023 clinical condition continues to improve 2. Hyponatremia ? Secondary to chronic alcohol use resolved 3. Seizure disorder ? Patient is on Keppra 4. Depression with anxiety ? Patient is on buspirone sertraline at home with plans to resume on discharge 5. GERD ? On PPI 6. Tobacco dependence - Counseled on cessation, offered nicotine patch for tobacco cravings 7. DVT prophylaxis ? Initiated Lovenox since patient is hardly ambulatory 8. Severe malnutrition ? r/t decreased ability to consume sufficient energy to meet estimated nutrient needs as evidenced by significant wt loss of 10.6% in 2 months based upon UBW ~170lbs and current wt of 152 lbs, decreased oral intake meeting < 50% of estimated nutrient needs x 2 months as well as mild to moderate muscle wasting per NFPA. Continue regular diet as ordered for liberalization. Continue ensure plus high protein 120 ml 4x/day w/medpass as well as will order ensure with breakfast to help futher increase oral intake. Time spent in the patient's overall evaluation,decision-making process, review of diagnostic data, adjustment of management, discussion with other providers, nursing nursing and ancillary staff involved in patient's care documentation, 35 minutes Charges/Coding Visit Charges Inpatient E&M: 23454 Subs Hosp L2
[2023-02-05] MEDS: NYSTATIN 500,000 UNIT/5 ML UDC 500000 UNIT PO ×3 (08:59→20:24)
[2023-02-05] MEDS: Thiamine Hydrochloride 100 MG Tablet PO (08:59)
[2023-02-05] MEDS: Folic Acid 1 MG Tablet PO (08:59)
[2023-02-05] MEDS: Enoxaparin 40 MG/0.4 ML Syringe SC (08:59)
[2023-02-05] MEDS: 0.9% Saline Lock 10 ML Syringe IV (08:59)
[2023-02-05] MEDS: Ensure Plus High Protein 120 ML LIQUID PO ×4 (08:59→20:23)
[2023-02-05] MEDS: levETIRAcetam IV 500 MG in 0.9% Normal Saline (100mL Bag) 100 ML 400 MG IV ×2 (09:25→20:23)
--- NOTE | 2023-02-05 14:14 | CHAPLAIN ---
Type of Pastoral Visit _x__ Initial Visit ___ Follow-up Visit ___ On-call Visit ___ General Patient Visit ___ Spiritual Assessment ___ Family Conference ___ Bereavement ___ Rapid Response ___ Code Blue ___ Other (describe below) Pastoral Care Referral From _x__ Patient ___ Family ___ Nurse ___ Physician ___ Coin Machine Collector Supervisor ___ [employer] Principal ___ Other (describe below) Sacrament/Intervention _x__ Active listening ___ Anointing ___ Mormon ___ Bereavement ___ Communion _x__ Heather exploration ___ _x__ Life review _x__ Prayer ___ Reconciliation ___ Sacrament of Sick _x__ Supportive presence ___ Wedding ___ Other (describe below) Pastoral Comments patient is welcoming and though he says some inappropriate things he is also alert and able to converse and to even think through what his issues and his needs are at this time; pt reports some life review and 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
[2023-02-05] MEDS: Ciprofloxacin 0.3% 2.5ml Bottle 2 DRP EACH EYE ×2 (16:15→20:24)
--- NOTE | 2023-02-05 18:51 | NURSING ---
Per patient request, called Brother, Neel, to inform him patient is here for ETOH detox, discussed POC and answered all questions. Neel would like to be informed when patient discharges from hospital to know where he is going and how to contact facility if needed.
[2023-02-05] MEDS: Dicyclomine 10 MG Capsule 20 MG PO (20:23)
[2023-02-05] MEDS: Gabapentin 300 MG Capsule PO (20:24)
[2023-02-06 02:00] VITALS: BP 121/76; PULSE 86; RESP 16; TEMP 36.9; O2SAT 94
[2023-02-06] MEDS: Ciprofloxacin 0.3% 2.5ml Bottle 2 DRP EACH EYE ×3 (03:12→09:37)
[2023-02-06] MEDS: Phenobarbital 32.4 MG Tablet 64.8 MG PO (03:12)
[2023-02-06 03:29] LABS: Hematocrit 36.6 % (40-54); Hemoglobin 11.3 g/dL (13.0-16.5); Mean Corp Hgb Conc 30.9 g/dL (32-36); Mean Corpuscular Hgb 26.8 pg (27.0-32.0); Mean Corpuscular Volume 86.9 fL (80-94); Mean Platelet Vol. 9.2 fl (6.2-12.0); Platelet Count 299 K/mm3 (150-450); RBC Distribution Width CV 19.4 % (11.6-14.6); RBC Distribution Width SD 61.5 fl (35.1-43.9); Red Blood Count 4.21 M/mm3 (4.6-6.2); White Blood Count 7.4 K/mm3 (4.4-11.0)
[2023-02-06 03:46] LABS: Anion Gap 7 (5-15); BUN 13 mg/dL (7-18); BUN/Creat Ratio 25.4 RATIO (10-20); Calcium,Total 9.4 mg/dL (8.5-10.1); Chloride 107 mmol/L (98-107); Creatinine, Serum 0.51 mg/dL (0.70-1.30); EST Glomerular Filtration Rate 175 mL/min (>60); Est Glom Filt Rate - Afr Amer 212 mL/min (>60); Estimated Creatinine Clearance 144.01 ml/min; Glucose 97 mg/dL (74-106); Potassium 3.8 mmol/L (3.5-5.1); Sodium Level 139 mmol/L (136-145)
[2023-02-06 04:19] VITALS: BMI 23.5
--- NOTE | 2023-02-06 07:22 | PCM.PN.HOSP ---
Subjective Subjective Patient seen much more interactive and coherent. Plans for patient to be assessed for possible discharge Objective Data Objective Data Vital Signs: Vital Signs Temp Pulse Resp BP Pulse Ox O2 Del Method O2 Flow Rate 98.5 F 86 16 121/76 H 94 Room Air 1 02/06/23 02:00 02/06/23 02:00 02/06/23 02:00 02/06/23 02:00 02/06/23 02:00 02/06/23 02:00 02/02/23 07:00 Oxygen Flow Rate (L/min) 1 Oxygen Delivery Method Room Air Weight: 68.1 kg Body Mass Index (BMI) 23.5 Intake & Output: Intake and Output for Last 24 Hours 02/04/23 02/05/23 02/06/23 23:59 23:59 23:59 Intake Total 617.03 / 617.03 820 / 820 Output Total 775 / 900 725 / 725 350 / 350 Balance -157.97 / -282.97 95 / 95 -350 / -350 Medical Nutrition Assessment Dietitian: Malnutrition Criteria Met Start: 01/31/23 17:08 Freq: Status: Active Protocol: Document 02/05/23 09:33 [facility] (Rec: 02/05/23 09:33 [facility]) Nutrition Malnutrition Evidence of Malnutrition Exists Yes Malnutrition (severe): Social/Behavioral/ Environmental Evidenced By Suboptimal Energy Intake ( Severe),Weight Loss (Severe), Physical Changes (Moderate) Clinical Problem Chronic Disease or Condition Related Malnutrition Etiology severe, chronic malnutrition related to inadequate protein/ calorie intake d/t alcohol abuse Signs/Symptoms as evidenced by significant weight loss of 10.6% x 2 months, estimated PO intake meeting <50% of estimated energy needs x 2 months, moderate muscle wasting/fat loss per physical exam Status Active Problem Recommendation Dietitian Recommendations/Changes regular diet- texture/ consistency per MACHINE SLAT BASKET MAKER. 120mL Ensure plus high protein 4x/ day w/ medpass for additional nutrition if consumed. Lab / Micro Data 02/06/23 03:00 02/06/23 03:00 Labs: Laboratory Results - last 24 hr 02/06/23 03:00: WBC 7.4, RBC 4.21 L, Hgb 11.3 L, Hct 36.6 L, MCV 86.9, MCH 26.8 L, MCHC 30.9 L, RDW Std Deviation 61.5 H, RDW Coeff of Warner 19.4 H, Plt Count 299, MPV 9.2, Sodium 139, Potassium 3.8, Chloride 107, Carbon Dioxide 25.0, Anion Gap 7, BUN 13, Creatinine 0.51 L, Estim Creat Clear Calc 144.01, Est GFR (MDRD) Af Amer 212, Est GFR (MDRD) Non-Af 175, BUN/Creatinine Ratio 25.4 H, Glucose 97, Calcium 9.4 Physical Exam Narrative GENERAL: Cooperative HEENT: Atraumatic; normocephalic EYES; Anicteric, Normal Conjunctiva NECK; supple, normal thyroid, RESPIRATORY: Diminished to auscultation CARDIOVASCULAR: Regular S1 S2, GI: soft, normoactive bowel sounds, : No Renal angle tenderness; EXTREMITIES: No edema, no clubbing, MUSCULOSKELETAL: no muscle wasting NEURO: Awake; no lateralizing signs. SKIN: No Rash PSYCH; Flat affect Assessment & Plan Assessment/Plan (1) Desire for detoxification: PLAN: Plan Patient is a 62-year-old gentleman with history of chronic alcohol dependence admitted with acute alcohol withdrawal with desire for detoxification. Hospital stay complicated by significant delirium resulting in patient being transferred to the intensive care unit with initiation of Precedex Acute alcohol withdrawal with significant delirium ? Admitted to the intensive care unit started on Precedex drip after patient worsening was on regular floor. Plan is to wean off Precedex and initiate phenobarb taper ? 02/04/2023;Patient has been weaned off Precedex drip. Per nursing staff patient had a choking episode during the early hours of the morning. Currently n.p.o. pending speech and swallow eval ? 02/05/2023 clinical condition continues to improve ? 02/06/2023 patient to be assessed for possible disc 2. Hyponatremia ? Secondary to chronic alcohol use resolved 3. Seizure disorder ? Patient is on Keppra 4. Depression with anxiety ? Patient is on buspirone sertraline at home with plans to resume on discharge 5. GERD ? On PPI 6. Tobacco dependence - Counseled on cessation, offered nicotine patch for tobacco cravings 7. DVT prophylaxis ? Initiated Lovenox since patient is hardly ambulatory 8. Severe malnutrition ? r/t decreased ability to consume sufficient energy to meet estimated nutrient needs as evidenced by significant wt loss of 10.6% in 2 months based upon UBW ~170lbs and current wt of 152 lbs, decreased oral intake meeting < 50% of estimated nutrient needs x 2 months as well as mild to moderate muscle wasting per NFPA. Continue regular diet as ordered for liberalization. Continue ensure plus high protein 120 ml 4x/day w/medpass as well as will order ensure with breakfast to help futher increase oral intake. Time spent in the patient's overall evaluation,decision-making process, review of diagnostic data, adjustment of management, discussion with other providers, nursing nursing and ancillary staff involved in patient's care documentation, 35 minutes Charges/Coding Visit Charges Inpatient E&M: 99767 Subs Hosp L2
[2023-02-06 08:20] VITALS: O2SAT 94
--- NOTE | 2023-02-06 08:49 | DS.PCM_ITS ---
Providers Date of Admission: 01/30/23 Date of Discharge: 02/06/23 Primary Care Physician: No Primary Care Phys Reason For Visit: DESIRE FOR ALCOHOL DETOXIFICATION Diagnosis Discharge Diagnosis (1) Desire for detoxification: Status: Acute Plan Patient is a 62-year-old gentleman with history of chronic alcohol dependence admitted with acute alcohol withdrawal with desire for detoxification. Hospital stay complicated by significant delirium resulting in patient being transferred to the intensive care unit with initiation of Precedex Acute alcohol withdrawal with significant delirium ? Admitted to the intensive care unit started on Precedex drip after patient worsening was on regular floor. Plan is to wean off Precedex and initiate phen obarb taper ? 02/04/2023;Patient has been weaned off Precedex drip. Per nursing staff patient had a choking episode during the early hours of the morning. Currently n.p.o. pending speech and swallow eval ? 02/05/2023 clinical condition continues to improve ? 02/06/2023 patient to be assessed for possible disc 2. Hyponatremia ? Secondary to chronic alcohol use resolved 3. Seizure disorder ? Patient is on Keppra 4. Depression with anxiety ? Patient is on buspirone sertraline at home with plans to resume on discharge 5. GERD ? On PPI 6. Tobacco dependence - Counseled on cessation, offered nicotine patch for tobacco cravings 7. DVT prophylaxis ? Initiated Lovenox since patient is hardly ambulatory 8. Severe malnutrition ? r/t decreased ability to consume sufficient energy to meet estimated nutrient needs as evidenced by significant wt loss of 10.6% in 2 months based upon UBW ~ 170lbs and current wt of 152 lbs, decreased oral intake meeting < 50% of estimated nutrient needs x 2 months as well as mild to moderate muscle wasting per NFPA. Continue regular diet as ordered for liberalization. Continue ensure plus high protein 120 ml 4x/day w/medpass as well as will order ensure with breakfast to help futher increase oral intake. Time spent in the patient's overall evaluation,decision-making process, review of diagnostic data, adjustment of management, discussion with other providers, nursing nursing and ancillary staff involved in patient's care documentation, 35 minutes Medications at Discharge Home Medications buspirone 10 mg tablet 10 mg PO TID anxiety 01/30/23 levetiracetam 500 mg tablet 500 mg PO BID unknown 01/30/23 melatonin 10 mg capsule 10 mg PO QHS PRN PRN sleep 01/30/23 ondansetron 4 mg disintegrating tablet 4 mg translingual TID nausea and vomiting 01/30/23 pantoprazole 40 mg tablet,delayed release 40 mg PO BID acid reflux 01/30/23 potassium chloride 10 mEq tablet,extended release(part/cryst) 10 meq PO BID [place] 01/30/23 sertraline 25 mg tablet 25 mg PO DAILY anxiety 01/30/23 sertraline 50 mg tablet 50 mg PO DAILY anxiety 01/30/23 sucralfate 100 mg/mL oral suspension 10 ml PO TID unknown 01/30/23 trazodone 100 mg tablet 100 mg PO QHS sleep 01/30/23 Hospital Course Summary of Care Provided Minutes Spent on Discharge: 35 Physical Exam Narrative GENERAL: Cooperative HEENT: Atraumatic; normocephalic EYES; Anicteric, Normal Conjunctiva NECK; supple, normal thyroid, RESPIRATORY: Diminished to auscultation CARDIOVASCULAR: Regular S1 S2, GI: soft, normoactive bowel sounds, : No Renal angle tenderness; EXTREMITIES: No edema, no clubbing, MUSCULOSKELETAL: no muscle wasting NEURO: Awake; no lateralizing signs. SKIN: No Rash PSYCH; Flat affect Medical Records Data Medical Nutrition Assessment Dietitian: Malnutrition Criteria Met Start: 01/31/23 17:08 Freq: Status: Active Protocol: Document 02/05/23 09:33 AG (Rec: 02/05/23 09:33 AG Desktop) Nutrition Malnutrition Evidence of Malnutrition Exists Yes Malnutrition (severe): Social/Behavioral/ Environmental Evidenced By Suboptimal Energy Intake ( Severe),Weight Loss (Severe), Physical Changes (Moderate) Clinical Problem Chronic Disease or Condition Related Malnutrition Etiology severe, chronic malnutrition related to inadequate protein/ calorie intake d/t alcohol abuse Signs/Symptoms as evidenced by significant weight loss of 10.6% x 2 months, estimated PO intake meeting <50% of estimated energy needs x 2 months, moderate muscle wasting/fat loss per physical exam Status Active Problem Recommendation Dietitian Recommendations/Changes regular diet- texture/ consistency per OPERATIONS/DISPATCH. 120mL Ensure plus high protein 4x/ day w/ medpass for additional nutrition if consumed. Weight / BMI Weight Weight: 68.1 kg Body Mass Index (BMI) 23.5 ABG / Lab / Microbiology Data 02/06/23 03:00 02/06/23 03:00 Laboratory: Laboratory Results - last 24 hr 02/06/23 03:00: WBC 7.4, RBC 4.21 L, Hgb 11.3 L, Hct 36.6 L, MCV 86.9, MCH 26.8 L, MCHC 30.9 L, RDW Std Deviation 61.5 H, RDW Coeff of Warner 19.4 H, Plt Count 299, MPV 9.2, Sodium 139, Potassium 3.8, Chloride 107, Carbon Dioxide 25.0, Anion Gap 7, BUN 13, Creatinine 0.51 L, Estim Creat Clear Calc 144.01, Est GFR (MDRD) Af Amer 212, Est GFR (MDRD) Non-Af 175, BUN/Creatinine Ratio 25.4 H, Glucose 97, Calcium 9.4 D/C Instructions Discharge Diet: No restrictions Discharge Activity: Return to Normal Activity Call your doctor if you observe: Fever of 101 or Higher, Shortness of breath, Fainting spells and Chest pain Meaningful Use Info Meaningful Use Diagnoses (Choose all that apply): None applicable Discharge Plan Admission Admit Date/Time: 01/30/23 19:25 Attending Provider: Derian La Primary Care Provider: Lashell Nagy,No Primary Consulting Providers: Michelet Alejo; Jatinder Sweeney Discharge Orders/Prescriptions Prescriptions: Continued sertraline 25 mg tablet 25 mg PO DAILY sertraline 50 mg tablet 50 mg PO DAILY pantoprazole 40 mg tablet,delayed release (DR/EC) 40 mg PO BID ondansetron 4 mg tablet,disintegrating 4 mg translingual TID levetiracetam 500 mg tablet 500 mg PO BID potassium chloride 10 mEq tablet,ER particles/crystals 10 meq PO BID sucralfate 100 mg/mL suspension 10 ml PO TID melatonin 10 mg capsule 10 mg PO QHS PRN PRN (Reason: sleep) Patient Comments: TAKE 1 CAPSULE BY MOUTH EVERY DAY AT BEDTIME NEEDED trazodone 100 mg tablet 100 mg PO QHS buspirone 10 mg tablet 10 mg PO TID Referrals / Follow Up: Care Physician,No Primary [Primary Care Provider] - [facility] Doctor,Out of [Non-Staff] - Disposition Disposition (needs filled in before D/C Order can be placed): Inpatient Rehab Unit/Facility Charges/Coding Visit Charges Inpatient E&M: 41321 Disch Hosp >30min
[2023-02-06 08:50] VITALS: BP 130/85; PULSE 68; RESP 16; TEMP 36.6; O2SAT 96
[2023-02-06] MEDS: levETIRAcetam IV 500 MG in 0.9% Normal Saline (100mL Bag) 100 ML 400 MG IV (09:00)
[2023-02-06] MEDS: Thiamine Hydrochloride 100 MG Tablet PO (09:36)
[2023-02-06] MEDS: Folic Acid 1 MG Tablet PO (09:36)
[2023-02-06] MEDS: Ensure Plus High Protein 120 ML LIQUID PO (09:37)
[2023-02-06] MEDS: NYSTATIN 500,000 UNIT/5 ML UDC 500000 UNIT PO (09:38)
--- NOTE | 2023-02-06 12:00 | ADDICTION ---
Patient has agreed to be picked up by [facility] in [place]. They will pick him up Thursday morning around 11am-franklin. They are traveling 3.5 hours so definitive time may be difficult.
--- NOTE | 2023-02-06 12:29 | NURSING ---
discharged with papers ,home medications, wallet with $150, keys per wheelchair
== END 2023-02-06 11:50 | DRG 775 ==
LOC: ED 17:36 → MS3 19:41 → ICU 02-01 05:53
PROVIDERS: Family Medicine; Admitting Provider Hospitalist; Emergency Provider Emergency Medicine; Visit Provider Internal Medicine
DX: F10.231 Alcohol dependence with withdrawal delirium (principal); E43 Unspecified severe protein-calorie malnutrition; G40.909 Epilepsy, unspecified, not intractable, without status epilepticus; I10 Essential (primary) hypertension; F32.A Depression, unspecified; E87.1 Hypo-osmolality and hyponatremia; F17.210 Nicotine dependence, cigarettes, uncomplicated; K21.9 Gastro-esophageal reflux disease without esophagitis; F41.9 Anxiety disorder, unspecified; Y90.1 Blood alcohol level of 20-39 mg/100 ml; R09.89 Other specified symptoms and signs involving the circulatory and respiratory systems; Z68.23 Body mass index [BMI] 23.0-23.9, adult; Z79.899 Other long term (current) drug therapy; Z23 Encounter for immunization
CPT/HCPCS: 80048; 80076; 80307; 82077; 83690; 83735; 84100; 85025; 85027; 92526; 92610; 94762; 97162; 97530; 97802; 97803; 99283; J7030; J7050; 90686; A4216; J2405; J3490